=== PATIENT | female | born 1980 | race Asian ===

== ENCOUNTER 2022-09-22 06:24 | Day surgery (SDC) | payer BC ==
[2022-09-22] MEDS ORDERED: Ringers Lactate 1,000 ML IV ONE (06:34)
[2022-09-22] MEDS ORDERED: propofoL 200 MG/20 ML VIAL IV ONE (06:36)
[2022-09-22] MEDS ORDERED: FENTANYL CITR 100 MCG/2 ML ONE (06:36)
[2022-09-22] MEDS ORDERED: dexAMETHasone 10 MG/ML VIAL ONE (06:37)
[2022-09-22] MEDS ORDERED: LIDOCAINE 2% MPF 5 ML VIAL ONE (06:37)
[2022-09-22] MEDS ORDERED: ONDANSETRON 4 MG/2 ML VIAL ONE (06:37)
[2022-09-22] MEDS ORDERED: MIDAZOLAM HCL 2 MG/2 ML INJ ONE (06:37)
[2022-09-22] MEDS: CEFAZOLIN SODIUM 2 GM/VIAL ONE ×3 (06:53→08:00)
[2022-09-22] MEDS ORDERED: LIDOCAINE 1% MPF 30 ML VIAL ONE (06:58)
[2022-09-22] MEDS ORDERED: LIDOCAINE 1.5% W/EPI AMP 5 ML ONE (06:58)
[2022-09-22] MEDS ORDERED: SILVER NITRATE 1 APPL TOP ONE (06:59)
[2022-09-22] MEDS ORDERED: IBUPROFEN 200 MG TAB PO PRN (07:42)
[2022-09-22] MEDS: VASOPRESSIN 20 UNIT/ML VIAL ONE ×2 (07:58→08:55)
[2022-09-22] MEDS ORDERED: NS 0.9% VIAL 20 ML ONE (08:01)
[2022-09-22] MEDS ORDERED: HOME MED 1 EA UNK (Levothyroxine Sodium [Levothyroxine] 25 MCG Capsule) PO SCH (09:00)
[2022-09-22] MEDS ORDERED: ASCORBIC ACID 500 MG TABLET PO SCH (09:00)
[2022-09-22] MEDS ORDERED: HOME MED 1 EA UNK (Spironolactone [Spironolactone] 50 MG Tablet) PO SCH (09:00)
[2022-09-22] MEDS ORDERED: QUERCETIN 500 MG PO SCH (09:00)
[2022-09-22 09:07] VITALS: O2SAT 98
[2022-09-22] MEDS ORDERED: IBUPROFEN 400 MG TAB ONE (09:26)
[2022-09-22] MEDS ORDERED: IBUPROFEN 200 MG TAB PO ONE (09:26)
[2022-09-22 11:05] VITALS: BP 126/79; TEMP 98
== END 2022-09-22 10:20 | disposition home or self-care (01) ==
LOC: OR 06:24
PROVIDERS: ATTEND Obstetrics & Gynecology
PROC: 0UBC8ZX Excision of Cervix, Via Natural or Artificial Opening Endoscopic, Diagnostic (ICD-10-PCS; principal; 2022-09-22 07:00)
DX: N87.0 Mild cervical dysplasia (principal); N93.0 Postcoital and contact bleeding; I10 Essential (primary) hypertension; E03.9 Hypothyroidism, unspecified; N75.0 Cyst of Bartholin's gland
CPT/HCPCS: 88305; 88307; 57460; J2704; J2001; J2250; J3010; J1100; A4216; J7120; J2405